=== PATIENT | female | born 2000 | race African-American/Black ===

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

== ENCOUNTER 2020-06-26 07:34 | Observation (INO) | payer MEDICAID ==
[~2020-06-26] VITALS: Ht 152.4 cm; Wt 63.5 kg
[2020-06-26 07:34] VITALS: BP 116/79
[~2020-06-26 07:34] MED LIST: PRENCAP61 PO
[2020-06-26] MEDS ORDERED: METO5TAB67 PO (08:28)
== END 2020-06-26 09:57 | disposition home or self-care (01) ==
LOC: ER 07:34 → EDBD 07:34 → LDRP 07:45
PROVIDERS: ADMIT Specialist; ATTEND Specialist
DX: O26.812 Pregnancy related exhaustion and fatigue, second trimester (principal); R10.30 Lower abdominal pain, unspecified; Z3A.22 22 weeks gestation of pregnancy
CPT/HCPCS: 59025; 76805; 81002; 99284; G0378